=== PATIENT | female | born 1985 | race Caucasian/White ===

== ENCOUNTER 2021-02-02 12:49 | Emergency (ER) | payer OTHER ==
--- NOTE | 2021-02-02 13:00 | NUR ---
PT CALLED TO TRIAGE, PT NOT IN WAITING ROOM
--- NOTE | 2021-02-02 13:18 | NUR ---
PT CALLED TO TRIAGE, PT NOT IN WAITING ROOM
== END 2021-02-02 13:19 | disposition left against medical advice (07) ==
LOC: ER 12:49
DX: Z53.21 Procedure and treatment not carried out due to patient leaving prior to being seen by health care provider (principal)